=== PATIENT | male | born 1950 | race Caucasian/White ===

== ENCOUNTER 2017-06-03 06:30 | Inpatient (IN) | payer OTHER ==
[~2017-06-03] VITALS: Ht 190.5 cm; Wt 114.8 kg
[~2017-06-03 06:30] MED LIST: CIME800T PO; HYDR-1189 PO; IBUP-1480 PO; INDLA80 PO; LOSA50TA3 PO; NIFE-2 PO
[2017-06-03] MEDS ORDERED: CEFAZOLIN 2 GM IVPB PREMIX 50 ML IV ONE ×2 (06:57→07:15)
[2017-06-03] MEDS ORDERED: GABAPENTIN 300 MG CAPSULE ONE (06:58)
[2017-06-03] MEDS ORDERED: CELECOXIB 200 MG CAPSULE ONE (06:58)
[2017-06-03] MEDS ORDERED: ACETAMINOPHEN 500 MG TABLET ONE (06:58)
[2017-06-03] MEDS ORDERED: TRANEXAMIC ACID 650 MG TABLET ONE (06:59)
[2017-06-03] MEDS ORDERED: oxyCODONE HCL 10 MG TAB.ER.12H PO ONE ×2 (06:59→07:15)
[2017-06-03] MEDS ORDERED: ACETAMINOPHEN 500 MG TABLET PO ONE (07:15)
[2017-06-03] MEDS ORDERED: TRANEXAMIC ACID 650 MG TABLET PO ONE (07:15)
[2017-06-03] MEDS ORDERED: GABAPENTIN 300 MG CAPSULE PO ONE (07:15)
[2017-06-03] MEDS ORDERED: CELECOXIB 200 MG CAPSULE PO ONE (07:15)
[2017-06-03] MEDS ORDERED: NACL 0.9% 1,000 ML IV ONE (07:15)
[2017-06-03] MEDS ORDERED: NS 100 ML BAG IV ONE (08:00)
[2017-06-03] MEDS ORDERED: ROCURONIUM BROMIDE 10 MG/ML (ZEMURON) IV ONE (08:00)
[2017-06-03] MEDS ORDERED: LR 1,000 ML IV.SOLN IV ONE (08:00)
[2017-06-03] MEDS ORDERED: TRANEXAMIC ACID 1,000 MG/10 ML VIAL IV ONE (08:00)
[2017-06-03] MEDS ORDERED: MIDAZOLAM HCL 5 MG/5 ML VIAL IVP ONE (08:00)
[2017-06-03] MEDS ORDERED: DILTIAZEM HCL 25 MG/5 ML VIAL IV ONE (08:00)
[2017-06-03] MEDS ORDERED: ONDANSETRON HCL 4 MG/2 ML VIAL IVP ONE (08:00)
[2017-06-03] MEDS ORDERED: SEVOFLURANE 15 MIN GAS INH ONE (08:00)
[2017-06-03] MEDS ORDERED: DEXAMETHASONE SOD PHOSPHATE 4 MG/ML VIAL IVP ONE ×2 (08:00)
[2017-06-03] MEDS ORDERED: KETOROLAC TROMETHAMINE 30 MG VIAL IVP ONE (08:00)
[2017-06-03] MEDS ORDERED: fentaNYL CITRATE 250 MCG/5 ML AMP IV ONE (08:00)
[2017-06-03] MEDS ORDERED: EPINEPHrine 1 MG/ML AMP IV ONE (08:00)
[2017-06-03] MEDS ORDERED: MORPHINE SULFATE 10MG/10ML PF AMP EP ONE (08:00)
[2017-06-03] MEDS ORDERED: ROPIVACAINE HCL/PF 5 MG/ML 0.5% 30 ML VIAL INJ ONE (08:00)
[2017-06-03] MEDS ORDERED: VANCOMYCIN HCL 1000 MG/VIAL IV ONE (08:00)
[2017-06-03] MEDS ORDERED: PROPOFOL 200MG/ 20ML VIAL (DIPRIVAN) IV ONE (08:00)
[2017-06-03] MEDS ORDERED: POLYMYXIN 500,000/BACIT.10,000 UNITS in NS IRR 1 L IR ONE (08:07)
[2017-06-03] MEDS ORDERED: LR 1,000 ML IV SCH (09:35)
[2017-06-03] MEDS ORDERED: ROPIVACAINE 0.2% 100 ML INJ SCH (09:35)
[2017-06-03] MEDS ORDERED: MEPERIDINE HCL/PF 25 MG/ML DISP.SYRIN IVP PRN (09:45)
[2017-06-03] MEDS ORDERED: MORPHINE 4 MG/ML INJ. SYRINGE IVP PRN ×5 (09:45→17:45)
[2017-06-03] MEDS ORDERED: HYDROcodone/ACETAMIN 10-325 MG TAB PO PRN ×2 (09:45)
[2017-06-03] MEDS ORDERED: ROPIVACAINE 0.2% 550 ML INJ SCH (10:25)
[2017-06-03] MEDS ORDERED: ONDANSETRON HCL 4 MG/2 ML VIAL IVP PRN (10:30)
[2017-06-03] MEDS ORDERED: oxyCODONE HCL 5 MG TABLET PO PRN (10:30)
[2017-06-03] MEDS ORDERED: DIPHENHYDRAMINE HCL 50 MG CAPSULE PO PRN (10:30)
[2017-06-03] MEDS ORDERED: SENNOSIDES 8.6 MG TABLET PO PRN (10:30)
[2017-06-03] MEDS ORDERED: PROMETHAZINE HCL 25 MG/ML AMP IVP PRN (10:30)
[2017-06-03] MEDS ORDERED: KETOROLAC TROMETHAMINE 15 MG VIAL IVP PRN (10:30)
[2017-06-03 12:15] VITALS: BP_SYST 136
[2017-06-03] MEDS: CEFAZOLIN 1 GM IVPB PREMIX 50 ML IV SCH ×2 (14:26→21:52)
[2017-06-03] MEDS: D5LR 1,000 ML IV SCH ×2 (14:26→22:30)
[2017-06-03] MEDS: ACETAMINOPHEN 500 MG TABLET PO SCH ×2 (14:33→21:49)
[2017-06-03] MEDS: oxyCODONE HCL 5 MG TABLET PO PRN (15:29)
[2017-06-03 16:38] VITALS: BP_SYST 134
[2017-06-03] MEDS ORDERED: MORPHINE 4 MG/ML INJ. SYRINGE ONE (17:39)
[2017-06-03] MEDS: RIVAROXABAN 15 MG TABLET PO SCH (17:39)
[2017-06-03] MEDS ORDERED: ONDANSETRON HCL 4 MG/2 ML VIAL IM PRN (17:45)
[2017-06-03 20:00] VITALS: BP_SYST 156
[2017-06-03] MEDS ORDERED: PROPRANOLOL HCL (INDERAL LA 60MG) PO ONE (21:30)
[2017-06-03] MEDS ORDERED: LOSARTAN POTASSIUM 50 MG TABLET (COZAAR) PO ONE (21:30)
[2017-06-03] MEDS: GABAPENTIN 300 MG CAPSULE PO SCH (21:49)
[2017-06-03] MEDS: CELECOXIB 200 MG CAPSULE PO SCH (21:50)
[2017-06-04 00:14] VITALS: BP_SYST 150
[2017-06-04] MEDS: CEFAZOLIN 1 GM IVPB PREMIX 50 ML IV SCH (05:53)
[2017-06-04 06:37] LABS: CALCIUM 9.1 mg/dL (8.4-11.0); CREATININE 1.26 mg/dL (0.55-1.30); POTASSIUM 4.8 mmol/L (3.5-5.1)
[2017-06-04 07:00] LABS: EOSINOPHILS % (AUTO) 0.1 % (0.0-4.0); HEMATOCRIT 38.7 % (36-54); HEMOGLOBIN 13.3 g/dL (14.0-18.0); LYMPHOCYTES # (AUTO) 1.4 K/uL (1.0-5.5); LYMPHOCYTES % (AUTO) 9.7 % (20.5-51.5); MEAN CORPUSCULAR HEMOGLOBIN 35 pg (27-31); MEAN CORPUSCULAR HGB CONC 35 % (32-36); MEAN CORPUSCULAR VOLUME 100 fL (79.0-98.0); MONOCYTES # (AUTO) 1.3 K/uL (0.0-1.0); MONOCYTES % (AUTO) 8.9 % (1.7-9.3); NEUTROPHILS # (AUTO) 11.8 K/uL (1.8-7.7); NEUTROPHILS % (AUTO) 81.3 % (40.0-70.0); PLATELET COUNT (AUTO) 188 K/uL (130-430); RED BLOOD CELL COUNT(AUTO) 3.87 MIL/uL (4.2-6.2); RED CELL DISTRIBUTION WIDTH 12.7 % (9.0-15.0); WHITE BLOOD COUNT (AUTO) 14.5 K/uL (4.8-10.8)
[2017-06-04 08:12] VITALS: BP_SYST 149
[2017-06-04] MEDS: CELECOXIB 200 MG CAPSULE PO SCH ×2 (08:34→21:00)
[2017-06-04] MEDS: NIFEDIPINE 30 MG TAB.ER.24 PO SCH (08:34)
[2017-06-04] MEDS: PANTOPRAZOLE SODIUM 40 MG TAB PO SCH (08:35)
[2017-06-04] MEDS: ACETAMINOPHEN 500 MG TABLET PO SCH ×3 (08:35→21:00)
[2017-06-04] MEDS: D5LR 1,000 ML IV SCH ×2 (08:37→17:30)
[2017-06-04] MEDS ORDERED: LOSARTAN POTASSIUM 50 MG TABLET (COZAAR) PO SCH ×2 (09:00→21:00)
[2017-06-04] MEDS ORDERED: PROPRANOLOL HCL (INDERAL LA 60MG) PO SCH ×2 (09:00→21:00)
[2017-06-04 12:47] VITALS: BP_SYST 127
[2017-06-04 16:00] VITALS: BP_SYST 147
[2017-06-04] MEDS: RIVAROXABAN 15 MG TABLET PO SCH (17:30)
[2017-06-04 19:50] VITALS: BP_SYST 120
[2017-06-04] MEDS: oxyCODONE HCL 5 MG TABLET PO PRN (20:59)
[2017-06-04] MEDS: GABAPENTIN 300 MG CAPSULE PO SCH (20:59)
[2017-06-04 23:50] VITALS: BP_SYST 138
[2017-06-05] VITALS (7 sets, daily range): BP systolic 113–163
[2017-06-05] MEDS: D5LR 1,000 ML IV SCH (04:30)
[2017-06-05 05:49] LABS: BASOPHILS # (AUTO) 0.1 K/uL (0.0-0.2); BASOPHILS % (AUTO) 0.6 % (0.0-2.0); EOSINOPHILS # (AUTO) 0.3 K/uL (0.0-0.4); HEMATOCRIT 36.6 % (36-54); HEMOGLOBIN 12.6 g/dL (14.0-18.0); LYMPHOCYTES # (AUTO) 2.6 K/uL (1.0-5.5); LYMPHOCYTES % (AUTO) 30.6 % (20.5-51.5); MEAN CORPUSCULAR HEMOGLOBIN 34 pg (27-31); MEAN CORPUSCULAR HGB CONC 35 % (32-36); MEAN CORPUSCULAR VOLUME 99 fL (79.0-98.0); MONOCYTES % (AUTO) 11.9 % (1.7-9.3); NEUTROPHILS # (AUTO) 4.6 K/uL (1.8-7.7); NEUTROPHILS % (AUTO) 53.9 % (40.0-70.0); PLATELET COUNT (AUTO) 162 K/uL (130-430); RED CELL DISTRIBUTION WIDTH 13.1 % (9.0-15.0)
[2017-06-05 06:06] LABS: CALCIUM 8.4 mg/dL (8.4-11.0); CREATININE 1.08 mg/dL (0.55-1.30); POTASSIUM 4.5 mmol/L (3.5-5.1)
[2017-06-05 06:44] LABS: WHITE BLOOD COUNT (AUTO) 8.6 K/uL (4.8-10.8)
[2017-06-05] MEDS ORDERED: RIVA15TA PO (08:40)
[2017-06-05] MEDS: PANTOPRAZOLE SODIUM 40 MG TAB PO SCH (08:56)
[2017-06-05] MEDS: CELECOXIB 200 MG CAPSULE PO SCH (08:57)
[2017-06-05] MEDS: NIFEDIPINE 30 MG TAB.ER.24 PO SCH (08:58)
[2017-06-05] MEDS: ACETAMINOPHEN 500 MG TABLET PO SCH (08:59)
== END 2017-06-05 16:15 | disposition home health service (06) | DRG 470 ==
LOC: SMU 06:30 → STU 12:27 → SMU 06-04 19:41
PROVIDERS: ADMIT Orthopaedic Surgery; ATTEND Orthopaedic Surgery
PROC: 3E0T3BZ Introduction of Anesthetic Agent into Peripheral Nerves and Plexi, Percutaneous Approach (ICD-10-PCS; 2017-06-03)
PROC: 0SRD0J9 Replacement of Left Knee Joint with Synthetic Substitute, Cemented, Open Approach (ICD-10-PCS; principal; 2017-06-03 07:30)
DX: M17.12 Unilateral primary osteoarthritis, left knee (principal); I10 Essential (primary) hypertension; Z87.891 Personal history of nicotine dependence
CPT/HCPCS: 36415; 80048; 85025; 87081; 88305; 88311; 97039; 97110-GP; 97116-GP; 97530-GP; C1713; C1776; J0171; J0690; J1100; J1885; J2250; J2270; J2274; J2405; J2704; J2795; J3010; J3370; J3490; J7060; J7120